=== PATIENT | female | born 1995 | race Caucasian/White ===

== ENCOUNTER 2020-04-20 12:47 | Outpatient (NON) | payer BC, SELFPAY ==
[2020-04-22 16:41] LABS: SARS-CoV-2 RNA PCR Negative
== END 2020-04-20 12:48 ==
PROVIDERS: PCP Family Medicine Adolescent Medicine; Visit Provider Family Medicine Adolescent Medicine
DX: R68.89 Other general symptoms and signs (principal); Z20.828 Contact with and (suspected) exposure to other viral communicable diseases
CPT/HCPCS: 87635; C9803; U0003